=== PATIENT | male | born 1965 | race Caucasian/White ===

== ENCOUNTER 2016-08-17 12:59 | Emergency (ER) | payer BC ==
[2016-08-17] MEDS ORDERED: ADRENALINE CHL INJ IM ONE (13:07)
[2016-08-17] MEDS ORDERED: ADRENALINE CHL INJ ONE (13:07)
[2016-08-17 13:08] VITALS: BP 168/77; BMI 30.2
[2016-08-17] MEDS ORDERED: BENADRYL INJ 50 MG VIAL IVP STA (13:08)
[2016-08-17] MEDS ORDERED: SOLU-Medrol 125 MG VIAL IVP ONE (13:08)
[2016-08-17] MEDS ORDERED: NS 1000 ML 1,000 ML IV ONE (13:09)
[2016-08-17] MEDS ORDERED: PEPCID 20 MG IV PREMIX* 20 MG/50 ML BAG IV ONE ×2 (13:09→13:16)
[2016-08-17] MEDS ORDERED: SOLU-Medrol 125 MG VIAL ONE (13:10)
[2016-08-17] MEDS ORDERED: BENADRYL INJ 50 MG VIAL ONE (13:10)
--- NOTE | 2016-08-17 13:12 | DR.ALLERGY ---
HPI - Time Seen Time seen: 13:09 - PCP Primary Care Physician: JACK SEAMAN - Complaint/Symptoms Chief Complaint Doctors Comments: Patient states he was working on the outside putting up cameras when something stung him in the face and on the chest with swelling of his eye and severe itching. He denies chest pain or SOB but has a rash on his right arm that is getting worst since he was stung. States she is a patient of Jack Seaman . He has not taken any medicines for the allergy. Chief Complaint:: PATIENT STATED THAT HE WAS WORKING OUTSIDE AND HE IS NOT SURE IF IT WAS A YELLOW JACKET OR A HONEY BEE BUT SOME TYPE STUNG HIM A COUPLE OF TIMES ON HIS FACE AND NECK. PATIENT HAS SWELLING NOTED TO HIS EYE AND NOSE. PATIENT STATED THIS ACCORDED ABOUT 30 MINS. AGO. - Source History Provided: Patient - Mode of Arrival Mode of Arrival: Ambulatory - Timing Onset of Chief Complaint: 08/17/16 Came on: Suddenly - Context Exposed to: Insect Developed: Facial swelling, Rash, Generalized erythema, Pruritis History of: Urticaria - Location Location: Generalized, Face, Eyes (right eye), Trunk, Extremeties (right arm with hived) - Severity SOB: Moderate Swallowing: None Rash: Moderate Pruritis: Severe - Modifying factors Improves: None used - Associated signs and symptoms Associated signs and symptoms: None PMH - PMH Past Medical History: Yes Past Medical History: GERD, Hypertension Past Surgical History: Yes Surgical History: Ortho Surgery, Other - Family History History of Family Medical Conditions: Yes Family Medical History: Diabetes Mellitus, Cancer, [place], Hypertension - Social History Does patient currently use any type of tobacco product: No Have you used tobacco products in the last 12 months: No Type of Tobacco Use: None Does any household member use tobacco: No Alcohol Use: None Do you use any recreational Drugs:: No Lives Where: Home - infectious screening In the last 2 months have you had wt loss of >10#?: NO Have you had fever, night sweats or hemotysis?: No Have you traveled outside the country in the last 6 months?: No Isolation: Standard ROS - Review of Systems Constitutional: No Symptoms Reported. negative: See HPI, Chills, Diaphoresis, Fever, Malaise, Weakness, Irritable, Fatigue, Loss of Appetite, Other Eyes: No Symptoms Reported ENTM: No Symptoms Reported. negative: See HPI, Ear Pain, Ear Discharge, Pulling on Ears, Hearing Loss, Nose Pain, Nose Discharge, Epistaxis, Nose Congestion, Mouth Pain, Mouth Swelling, Loose Teeth, Drooling, Throat Pain, Throat Swelling, Ear Foreign Body Respiratoy: No Symptoms Reported. negative: See HPI, Productive Cough, Non- Productive Cough, Moist Cough, Dry Cough, Hacking Cough, Barking Cough, Brassy Cough, Orthopnea, Short of Breath, Stridor, Wheezing, Hemoptysis, Other Cardiovascular: No Symptoms Reported Gastrointestinal/Abdominal: No Symptoms Reported Genitourinary: No Symptoms Reported Neurological: No Symptoms Reported. negative: See HPI, Anxiety, Depressed, Emotional Problems, Headache, Numbness, Paresthesia, Pre-existing Deficit, Seizure, Tingling, Tremors, Weakness, Dizziness, Problems Walking, Speech Problem, Other Musculoskeletal: No Symptoms Reported Integumentary: No Symptoms Reported. negative: See HPI, Change in Color, Change in Hair/Nails, Dryness, Lesions, Lumps, Rash, Itching, Wound, Bruises, Juandice, Other Hematologic/Lymphatic: No Symptoms Reported Endocrine: No Symptoms Reported. negative: See HPI, Excessive Sweating, Flushing, Intolerance to Cold, Intolerance to Heat, Increased Hunger, Increased Thirst, Increased Urine, Unexplained Weight Gain, Unexplained Weight Loss, Failure to Thrive, Decreased Appetite, Other Psychiatric: No Symptoms Reported. negative: See HPI, Anxiety, Depression, Hallucinations, Excessive crying, Suicidal, Other PE - Vitals Vital Signs: Temp Pulse Resp BP BP Pulse Ox 08/17/16 13:02 97.8 F 116 H 20 168/77 97 04/02/15 18:20 164/78 164/78 - Constitutional Limitations: No Limitations General Appearance: Alert, In Distress (moderate) - Head Head Exam: Normal Inspection, Atraumatic, Normocephalic - Eyes Eye exam: Normal Appearance, PERRL, EOMI. negative: Scleral Icterus, Conjunctival Injection, Nystagmus, Miosis, Mydrasis, Periorbital Swelling, Periorbital Tenderness, Other - ENT ENT Exam: Normal Exam, Normal Oropharynx, Normal External Ear Exam, Mucous Membranes Moist, TM's Normal Bilaterally Mouth Exam: Normal Inspection Throat Exam: Normal Inspection - Neck Neck Exam: Normal Inspection, Full ROM, Trachea Midline. negative: Tenderness, Meningismus, Lymphadenopathy, Thyromegaly, Other - Chest Chest Inspection: Normal Inspection, Symmetric Chest Wall Rise - Respiratory Respiratory Exam: Normal Lung Sounds Bilat Respiratory Exam: Bilateral Clear to Auscultation - Cardiovascular Cardiovascular Exam: Regular Rate, Normal Rhythm, Normal Heart Sounds. negative : Bradycardia, Tachycardia, Irregular Rhythm, Systolic Murmur, Diastolic Murmur , Rubs, Gallop, Clicks, JVD, +S1, +S2, +S3, +S4, Other - Abdominal Exam Abdominal Exam: Normal Inspection, Normal Bowel Sounds, Soft. negative: Distention, Tenderness, Guarding, Rebound, Rigidity, Dimnished Bowel Sounds, Hyperactive Bowel Sounds, Hypoactive Bowel Sounds, Organomegaly, Trauma, Incision, Ascites, Mass, Bruit, Pulsatile Mass, Hernia, Other Abdominal Tenderness: negative: RUQ, RLQ, LUQ, LLQ, Epigastrium, Suprapubic, Diffuse, Mild, Moderate, Severe, Other - Extremities Extremities Exam: Normal Inspection, Full ROM, Normal Capillary Refill. negative: Tenderness, Edema, Joint Swelling, Calf Tenderness, Other - Back Back Exam: Normal Inspection, Full ROM. negative: Tenderness, (R) CVA Tenderness, (L) CVA Tenderness, Muscle Spasm, Paraspinal Tenderness, Vertebral Tenderness, Rashes, (R) Sciatic Notch Tenderness, (L) Sciatic Notch Tendern, (R ) Straight Leg Raise, (L) Straight Leg Raise, Other - Neurologic Neurological Exam: Alert, Oriented X3, CN II-XII Intact, Normal Gait, Reflexes Normal - Psychiatric Psychiatric Exam: Normal Affect, Normal Mood. negative: Depressed, Agitated, Anxious, Flat Affect, Manic, Homicidal Ideation, Suicidal Ideation, Other - Skin Skin Exam: Warm, Dry, Intact, Normal Color, Rash (right arm with hives diffuse from upper to lower arm and hand ) Type of Lesion: Rash, Bite/Sting Distribution: Generalized, Face, Chest, RUE Description: Urticarial. negative: Size, Tenderness ( ), Erythematous, Swelling , Macular, Papular, Vesicular, Blisters, Cofluent, Bullous, Petechial, Purpuric , Crusting, Discharge, Fluctuant, Indurated, Other Course - Reevaluation 1st: Improved 3rd: Resolved - Education/Counseling Education/Counseling: Patient, Family Educated On: Treatment, Diagnosis, Prognosis, Needs for Follow Up (Patient states the itching has resolved and he is feeling better and is ready to go home.) ROR - Labs Reviewed Result Diagrams: 08/17/16 13:26 08/17/16 13:26 Laboratory: WBC 7.6 X10^3/uL (3.6-10.0) 08/17/16 13:26 RBC 5.32 X10^6/uL (4.7-6.0) 08/17/16 13:26 Hgb 16.7 g/dL (13.5-18.0) 08/17/16 13:26 Hct 48.4 % (42.0-54.0) 08/17/16 13:26 MCV 90.9 fL (80.0-100.0) 08/17/16 13:26 MCH 31.4 pg (27.0-34.0) 08/17/16 13:26 MCHC 34.6 g/dL (33.0-35.0) 08/17/16 13:26 RDW 14.3 % (11.6-16.5) 08/17/16 13:26 Plt Count 386 X10^3/uL (150.0-450.0) 08/17/16 13:26 MPV 7.7 fL (7.4-11.0) 08/17/16 13:26 Neut % 74.6 % (42.0-75.0) 08/17/16 13:26 Lymph % 18.1 % (21.0-51.0) L 08/17/16 13:26 Merrick % 6.4 % (0.0-13.0) 08/17/16 13:26 Eos % 0.3 % (0.9-2.9) L 08/17/16 13:26 Baso % 0.6 % (0.2-1.0) 08/17/16 13:26 Neut # 5.7 x10^3/uL (2.2-4.8) H 08/17/16 13:26 Lymph # 1.4 X10^3/uL (1.3-2.9) 08/17/16 13:26 Merrick # 0.5 x10^3/uL (0.3-0.8) 08/17/16 13:26 Eos # 0.0 x10^3/uL (0.0-0.2) 08/17/16 13:26 Baso # 0.0 X10^3/uL (0.0-0.1) 08/17/16 13:26 Absolute Nucleated RBC 0.2 /100WBC 08/17/16 13:26 Sodium 141 mmol/L (136-145) 08/17/16 13:26 Corrected Sodium 142 mmol/L (136-145) 08/17/16 13:26 Potassium 4.0 mmol/L (3.5-5.1) 08/17/16 13:26 Chloride 104 mmol/L (98-107) 08/17/16 13:26 Carbon Dioxide 23.6 mmol/L (21-32) 08/17/16 13:26 BUN 16 mg/dL (7-18) 08/17/16 13:26 Creatinine 1.20 mg/dL (0.70-1.30) 08/17/16 13:26 Est GFR (MDRD) Af Amer > 60 (>60) 08/17/16 13:26 Est GFR (MDRD) Non-Af > 60 (>60) 08/17/16 13:26 Glucose 139 mg/dL (65-99) H 08/17/16 13:26 Calcium 9.1 mg/dL (8.5-10.1) 08/17/16 13:26 Corrected Calcium TNP 08/17/16 13:26 Total Bilirubin 0.70 mg/dL (0.2-1.0) 08/17/16 13:26 AST 19 Units/L (15-37) 08/17/16 13:26 ALT 39 Units/L (12-78) 08/17/16 13:26 Alkaline Phosphatase 82 Units/L (46-116) 08/17/16 13:26 Total Protein 7.2 g/dL (6.4-8.2) 08/17/16 13:26 Albumin 4.0 g/dL (3.4-5.0) 08/17/16 13:26 Globulin 3.2 g/dL (2.5-4.5) 08/17/16 13:26 Albumin/Globulin Ratio 1.3 Ratio (1.1-2.1) 08/17/16 13:26 - Diagnosis Discharge Problem: Allergic reaction to bee sting, Hyperglycemia, Borderline hypertension - Discharge Plan Disposition: 01 HOME, SELF-CARE Condition: Stable Prescriptions: Diphenhydramine HCl [BENADRYL 50 MG CAP *] 50 mg PO Q4-6H PRN #30 cap PRN Reason: Allergy/Itching Loratadine [Claritin] 10 mg PO DAILY #30 tab Prednisone [PREDNISONE TAB 10 MG *] 10 mg PO QAM #10 tab Ranitidine HCl [ZANTAC TAB 150 MG *] 150 mg PO BID #20 tab - Follow ups/Referrals Follow ups/Referrals: JACK SEAMAN [Primary Care Provider] - 3 days - Instructions Instructions: Anaphylactic Reaction, Anaphylactic Reaction, [id number], Hives , [id number], Bee, Wasp, or Hornet Sting, Hyperglycemia, Hypertension, Easy-to -Read
[2016-08-17] MEDS ORDERED: NS 1000 ML 1,000 ML ONE (13:16)
[2016-08-17 13:37] LABS: BASOPHILS % (AUTO) 0.6 % (0.2-1.0); EOSINOPHILS % (AUTO) 0.3 % (0.9-2.9); HEMATOCRIT 48.4 % (42.0-54.0); HEMOGLOBIN 16.7 g/dL (13.5-18.0); LYMPHOCYTES # (AUTO) 1.4 X10^3/uL (1.3-2.9); LYMPHOCYTES % (AUTO) 18.1 % (21.0-51.0); MEAN CORPUSCULAR HEMOGLOBIN 31.4 pg (27.0-34.0); MEAN CORPUSCULAR HGB CONC 34.6 g/dL (33.0-35.0); MEAN CORPUSCULAR VOLUME 90.9 fL (80.0-100.0); MEAN PLATELET VOLUME 7.7 fL (7.4-11.0); MONOCYTES # (AUTO) 0.5 x10^3/uL (0.3-0.8); MONOCYTES % (AUTO) 6.4 % (0.0-13.0); NEUTROPHILS # (AUTO) 5.7 x10^3/uL (2.2-4.8); NEUTROPHILS % (AUTO) 74.6 % (42.0-75.0); PLATELET COUNT 386 X10^3/uL (150.0-450.0); RED BLOOD COUNT 5.32 X10^6/uL (4.7-6.0); RED CELL DISTRIBUTION WIDTH 14.3 % (11.6-16.5); WHITE BLOOD COUNT 7.6 X10^3/uL (3.6-10.0)
[2016-08-17 13:44] LABS: ALANINE AMINOTRANSFERASE 39 Units/L (12-78); ALKALINE PHOSPHATASE 82 Units/L (46-116); ASPARTATE AMINO TRANSFERASE 19 Units/L (15-37); BLOOD UREA NITROGEN 16 mg/dL (7-18); CALCIUM 9.1 mg/dL (8.5-10.1); CARBON DIOXIDE 23.6 mmol/L (21-32); CHLORIDE 104 mmol/L (98-107); COR NA(FOR HYPERGLY) 142 mmol/L (136-145); GLUCOSE 139 mg/dL (65-99); SODIUM 141 mmol/L (136-145); TOTAL PROTEIN 7.2 g/dL (6.4-8.2); eGFR BLACK RACES > 60 (>60); eGFR NON BLACK RACES > 60 (>60)
== END 2016-08-17 15:30 | disposition home or self-care (01) ==
LOC: ER 13:01
DX: T63.464A Toxic effect of venom of wasps, undetermined, initial encounter (principal); R73.9 Hyperglycemia, unspecified; I10 Essential (primary) hypertension
CPT/HCPCS: 36415; 80053; 85025; 96365; 96372; 96374; 96375; 99283; A4222; S0028; J0170; J1200; J2930